=== PATIENT | male | born 1995 | race Caucasian/White ===

== ENCOUNTER 2016-10-18 12:01 | Emergency (ER) | payer SELFPAY ==
[~2016-10-18] VITALS: Ht 172.7 cm; Wt 81.2 kg
[2016-10-18 14:20] VITALS: BP 131/76
== END 2016-10-18 14:20 | disposition home or self-care (01) ==
LOC: ED 12:01
DX: S51.811A Laceration without foreign body of right forearm, initial encounter (principal); W26.8XXA Contact with other sharp object(s), not elsewhere classified, initial encounter; Y93.89 Activity, other specified; Y99.8 Other external cause status; Y92.89 Other specified places as the place of occurrence of the external cause
CPT/HCPCS: J2001